=== PATIENT | female | born 1970 | race Two or more races ===

== ENCOUNTER 2019-02-08 09:23 | Emergency (ER) | payer OTHER ==
[~2019-02-08] VITALS: Ht 154.9 cm; Wt 57.2 kg
[~2019-02-08 09:23] MED LIST: IBUPROFEN600 MG ORAL; KEFLEX500 MG ORAL
[2019-02-08] MEDS ORDERED: NKM (09:30)
--- NOTE | 2019-02-08 09:35 | NUR ---
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 pt aao x4 and skin clean and intact. pink conjuntiva noted.
--- NOTE | 2019-02-08 09:41 | NUR ---
ED Nurse Note: spoke with poison control center and received instruction: Irrigate with saline for 15min and check pH. Wait 7min and check pH again and make sure it's within the normal range. And make sure there's no abrasion and refer any optometry consult.
[2019-02-08 10:00] VITALS: BP 117/73
--- NOTE | 2019-02-08 10:36 | NUR ---
ED Nurse Note: ERMD informed about poison control's recomendation.
[2019-02-08] MEDS ORDERED: Fluorescein Strips RIGHT EYE ONE (11:00)
--- NOTE | 2019-02-08 12:19 | Emergency Room Report ---
History of Present Illness General Chief Complaint: Eye Problems Source: Patient Present Illness HPI This patient is an employee here at [facility]. She works in [employer]. She was cleaning the bathroom when she accidentally splashed yu into her right eye. She complains of a burning sensation and light sensitivity. She denies blurry vision. She denies eye pain. She denies headache. She has no other complaints. Allergies: Coded Allergies: No Known Allergies (Unverified , 02/08/19) Patient History Past Medical History: none Social History: Denies: smoking, alcohol use, drug use Last Menstrual Period: february 02, 2019 Reviewed Nursing Documentation: PMH: Agreed; PSxH: Agreed Nursing Documentation-PMH Past Medical History: No Stated History Review of Systems All Other Systems: negative except mentioned in HPI Physical Exam Vital Signs Date Time Temp Pulse Resp B/P (MAP) Pulse Ox O2 Delivery O2 Flow Rate FiO2 02/08/19 09:26 98.8 78 15 117/73 96 Room Air Sp02 EP Interpretation: reviewed, normal General Appearance: no apparent distress, alert, GCS 15, non-toxic Head: normocephalic, atraumatic Eyes: right eye other - No fluorescin uptake on wood's lamp examination.; bilateral eye normal inspection, bilateral eye PERRL ENT: hearing grossly normal, normal pharynx, no angioedema, normal voice Neck: normal inspection, full range of motion Respiratory: no respiratory distress, no retraction, no accessory muscle use, speaking full sentences Rectal: deferred Musculoskeletal: gait/station normal, normal range of motion Neurologic: alert, oriented x3, responsive, motor strength/tone normal, sensory intact, speech normal Psychiatric: judgement/insight normal, memory normal, mood/affect normal, no suicidal/homicidal ideation Skin: normal color, no rash, warm/dry, well hydrated Medical Decision Making Diagnostic Impression: Primary Impression: Chemical conjunctivitis of right eye ER Course This patient has a chemical conjunctivitis of the right eyelid. The eye was irrigated with a Alex lens. There is no evidence of corneal ulcer or injury. There is no eye pain and visual acuity is normal. The eye was also swept with a cotton tip applicator to assure removal of any sedimentation. Patient will follow-up with Dr. Tay of ophthalmology tomorrow. I will also place the patient on topical antibiotics as a precaution. The patient is given close return precautions and follow-up instructions. Last Vital Signs Date Time Temp Pulse Resp B/P (MAP) Pulse Ox O2 Delivery O2 Flow Rate FiO2 02/08/19 10:00 98.8 84 15 117/73 96 Room Air Status: improved Disposition: HOME, SELF-CARE Condition: Improved Referrals: NOT CHOSEN IPA/MD,REFERRING (PCP) Patient Instructions: Chemical Conjunctivitis, [id number] Betty Shukla DO Feb 08, 2019 12:19
[2019-02-08] MEDS ORDERED: Tetracaine 0.5% Opth 4ml Soln ONE (12:21)
[2019-02-08] MEDS ORDERED: Tetracaine 0.5% Opth 4ml Soln RIGHT EYE ONE (12:30)
--- NOTE | 2019-02-08 12:32 | NUR ---
ED Nurse Note: Initiated right eye irrigation using Alex Lense, 500mL NS as ordered. Patient tolerating the procedure wthout difficutly.
[2019-02-08] MEDS ORDERED: BLEPH-105 ML OP (12:34)
[2019-02-08 12:46] VITALS: BP 147/70
--- NOTE | 2019-02-08 12:47 | NUR ---
ER DISCHARGE NOTE: Patient is cleared to be discharged per ERMD, pt is aox4, on room air, with stable vital signs. pt was given dc and prescription instructions and eye doctor's office information, pt was able to verbalize understanding, and pt provided workers compensation documents, pt id band removed. pt is able to ambulate with steady gait. pt took all belongings.
== END 2019-02-08 12:48 | disposition home or self-care (01) ==
LOC: EMR 09:55
DX: H10.211 Acute toxic conjunctivitis, right eye (principal)
CPT/HCPCS: 99283